=== PATIENT | female | born 1985 ===

== ENCOUNTER 2020-05-25 08:37 | Outpatient (REF) | payer OTHER, SELFPAY | END 2020-05-25 08:38 | disposition home or self-care (01) | LOC: HO.LAB 08:37 | PROVIDERS: Visit Provider Internal Medicine | DX: Z20.828 Contact with and (suspected) exposure to other viral communicable diseases (principal) | CPT/HCPCS: C9803; U0003 ==

== ENCOUNTER 2020-09-05 12:30 | Emergency (ER) | payer OTHER, SELFPAY ==
[2020-09-05 12:48] VITALS: BP 115/67; PULSE 78; RESP 16; TEMP 36.3; O2SAT 98; BMI 17.8
[2020-09-05 16:28] LABS: MANUAL DIFF FLAG NO
[2020-09-05 16:31] LABS: Basophils Percent Auto 0.4 % (0-2); Eosinophils Percent Auto 0.4 % (0-4); Hematocrit 37.3 % (37-47); Hemoglobin 12.3 g/dl (12.0-16.0); Imm Gran Abs Auto 0.02 X10*3/uL (0.00-0.03); Imm Gran Pct Auto 0.2 % (0.0-0.4); Lymphocytes Absolute Auto 2.7 X10*3/uL (1.2-4.9); Lymphocytes Percent Auto 29.1 % (20-40); Mean Corpuscular Hemoglobin 32.1 pg (27.0-33.0); Mean Corpuscular Volume 97.4 fL (80-98); Mean Platelet Volume 9.7 fL (9.4-12.3); Monocytes Absolute Auto 0.5 X10*3/uL (0.1-1.2); Monocytes Percent Auto 5.4 % (2-11); Neutrophils Absolute Auto 5.9 X10*3/uL (2.0-8.3); Neutrophils Percent Auto 64.5 % (45-73); Platelet Count 261 X10*3/uL (160-400); Red Blood Count 3.83 X10*6/uL (4.20-5.50); Red Cell Distribution Width 13.3 % (11.0-16.0); White Blood Count 9.2 X10*3/uL (4.8-10.8)
== END 2020-09-05 18:31 | disposition left against medical advice (07) ==
LOC: HO.ED 18:31
PROVIDERS: Emergency Provider Emergency Medicine; PCP Internal Medicine
DX: R10.9 Unspecified abdominal pain (principal)
CPT/HCPCS: 36415; 85025; 99282

== ENCOUNTER 2022-03-24 09:49 | Outpatient (REF) | payer OTHER, SELFPAY ==
[2022-03-24 10:28] LABS: MANUAL DIFF FLAG NO
[2022-03-24 10:38] LABS: Basophils Percent Auto 0.4 % (0-2); Eosinophils Absolute Auto 0.1 X10*3/uL (0.0-0.4); Eosinophils Percent Auto 1.2 % (0-4); Hematocrit 38.4 % (37.0-47.0); Hemoglobin 12.6 g/dl (12.0-16.0); Imm Gran Abs Auto 0.02 X10*3/uL (0.00-0.03); Imm Gran Pct Auto 0.2 % (0.0-0.4); Lymphocytes Absolute Auto 2.6 X10*3/uL (1.2-4.9); Lymphocytes Percent Auto 28.7 % (20-40); Mean Corpuscular HGB Conc 32.8 g/dl (31.0-35.0); Mean Corpuscular Volume 94.6 fL (80.0-98.0); Mean Platelet Volume 9.7 fL (9.4-12.3); Monocytes Absolute Auto 0.7 X10*3/uL (0.1-1.2); Monocytes Percent Auto 7.3 % (2-11); Neutrophils Absolute Auto 5.7 x10*3/uL (2.0-8.3); Neutrophils Percent Auto 62.2 % (45-73); Platelet Count 303 X10*3/uL (160-400); Red Blood Count 4.06 X10*6/uL (4.20-5.50); Red Cell Distribution Width 13.1 % (11.0-16.0); White Blood Count 9.2 X10*3/uL (4.8-10.8)
[2022-03-24 11:32] LABS: Alanine Aminotransferase 12 U/L (0-31); Albumin Level 4.1 g/dL (3.5-5.0); Alkaline Phosphatase 57 U/L (39-117); Anion Gap 13 (12-20); Aspartate Amino Transferase 15 U/L (5-31); Bilirubin Total 0.4 mg/dL (0.0-1.0); Blood Urea Nitrogen 9 mg/dL (9-16); Calcium 8.7 mg/dL (8.4-10.2); Carbon Dioxide 23 mmol/L (22-29); Chloride 106 mmol/L (96-108); Cholesterol 167 mg/dL; Estimated Glomerular Filt Rate > 60; Glucose Fasting 99 mg/dL (60-99); HDL Cholesterol 48 mg/dL; LDL Cholesterol Calculated 102 mg/dl; Potassium 4.3 mmol/L (3.3-5.1); Sodium 138 mmol/L (135-145); Total Protein 6.5 g/dL (6.5-8.0); Triglycerides 85 mg/dL
[2022-03-24 11:55] LABS: TSH reflex Free T4 0.16 uIU/mL (0.32-4.0)
[2022-03-24 12:36] LABS: Free T4 (Free Thyroxine) 1.01 ng/dL (0.71-1.85)
[2022-03-25 22:07] LABS: Triiodothyronine T3 Free 3.4 pg/mL (2.3-4.2)
[2022-03-27 01:47] LABS: TS Negative Control Passed; TS Panel A 0; TS Panel B 4; TS Positive Control Passed; TSpotTB Negative (Negative)
== END 2022-03-24 09:50 | disposition home or self-care (01) ==
LOC: HO.10HDL 09:49
PROVIDERS: Visit Provider Internal Medicine
DX: Z00.00 Encounter for general adult medical examination without abnormal findings (principal); Z11.1 Encounter for screening for respiratory tuberculosis; E05.80 Other thyrotoxicosis without thyrotoxic crisis or storm
CPT/HCPCS: 36415; 80053; 80061; 84439; 84443; 84481; 85025; 86481

== ENCOUNTER 2022-10-05 15:19 | Emergency (ER) | payer OTHER, SELFPAY ==
[2022-10-05 15:22] VITALS: BP 119/63; PULSE 90; RESP 18; TEMP 37.2; O2SAT 99; BMI 17.1
--- NOTE | 2022-10-05 15:23 | ED.GENADULT ---
HPI - General Adult General Chief complaint: General Medical <JOSE Stein - Last Filed: 10/05/22 15:24> Stated complaint: vomit, feeling weak, abd pain <JOSE Stein Last Filed: 10/05/22 15:24> Time Seen by Provider: 10/05/22 15:33 <JOSE Stein - Last Filed: 10/05/22 15:24> Source: patient <Monse Levine NP - Last Filed: 10/05/22 17:56> Mode of arrival: ambulatory <Monse Levine NP - Last Filed: 10/05/22 17:56> Limitations: no limitations <YOSHI Rodriguez Last Filed: 10/05/22 17:56> History of Present Illness HPI narrative: 36 yo female here with complaints of intermittent upper abdominal pain, vomiting over last month worsened over the last 3 days. No diarrhea, constipation, urinary symptoms, fevers, chills. Patient reports 1 month ago her . She has been suffering with anxiety and depression since he . She reports decreased p.o. intake and has lost 10-15 lb. She denies any suicidal thoughts. Patient is not taking any current medication for anxiety depression. She does not have a therapist or any prescribing psychiatrist <Monse Levine NP - Last Filed: 10/05/22 17:56> Related Data Home medications: Previous Rx's Medication Instructions Recorded omeprazole 40 mg capsule,delayed 40 mg PO DAILY #30 caps 10/05/22 release sucralfate 1 gram tablet (Carafate) 1 g PO TID #90 tabs 10/05/22 <JOSE Stein Last Filed: 10/05/22 15:24> Allergies/adverse reactions: Allergies Allergy/AdvReac Type Severity Reaction Status Date / Time No Known Allergies Allergy Unverified 03/22/20 17:44 [No Known Allergies*] <JOSE Stein Last Filed: 10/05/22 15:24> Review of Systems Review of Systems: Yes all other systems are reviewed and are negative <YOSHI Rodriguez Last Filed: 10/05/22 17:56> Constitutional: Constitutional: Reports no additional constitutional complaints, Denies body ache(s), Denies chills, Denies fever(s), Denies headache(s) and Denies weakness <Monse Levine [employer] - Last Filed: 10/05/22 17:56> Eyes: Eyes: Reports no additional eye complaints and Denies change in vision <Monse Levine [employer] - Last Filed: 10/05/22 17:56> ENT: Reports system reviewed and no additional complaints, except as documented, Denies dizziness, Denies headache(s), Denies nasal congestion, Denies nasal discharge and Denies neck pain <Monse Levine [employer] - Last Filed: 10/05/22 17:56> Cardiovascular: Cardiovascular: Reports no additional cardiovascular complaints, Denies chest pain, Denies leg edema and Denies dyspnea <Monse Levine [employer] - Last Filed: 10/05/22 17:56> Respiratory: Respiratory: Reports no additional respiratory complaints, Denies cough and Denies dyspnea <Monse Levine [employer] - Last Filed: 10/05/22 17:56> Gastrointestinal: Gastrointestinal: Reports no additional gastrointestinal complaints, Reports abdominal pain, Denies diarrhea, Reports nausea and Reports vomiting <Monse Levine [employer] - Last Filed: 10/05/22 17:56> Genitourinary: Genitourinary: Reports no additional female genitourinary complaints and Denies urinary incontinence <Monse Levine [employer] - Last Filed: 10/05/22 17:56> Musculoskeletal: Musculoskeletal: Reports no additional musculoskeletal complaints, Denies back pain, Denies arthralgias, Denies joint swelling, Denies neck pain, Denies numbness and Denies tingling <Monse Levine [employer] - Last Filed: 10/05/22 17:56> Integumentary/Breasts: Skin/Breast: Reports system reviewed and no additional complaints, except as docu and Denies rash <Monse Levine [employer] - Last Filed: 10/05/22 17:56> Neurologic: Reports system reviewed and no additional complaints, except as documented, Denies dizziness, Denies headache(s), Denies numbness, Denies tingling and Denies weakness <Monse Levine NP - Last Filed: 10/05/22 17:56> Psychiatric: Psychiatric: Reports anxiety, Reports depression, Denies homicidal ideation and Denies suicidal ideation <Monse Levine NP - Last Filed: 10/05/22 17:56> [facility] Past Medical History Attestation statement: The following information was validated with the patient. <Monse Levine NP - Last Filed: 10/05/22 17:56> Source: old records reviewed and nursing notes reviewed <Monse Levine NP - Last Filed: 10/05/22 17:56> Social History Social History: Social History Advance Directives: No Advance Directives Information Provided: No <JOSE Stein - Last Filed: 10/05/22 15:24> Physical Exam ED Vital Signs: Vital Signs - 24 hr 10/05/22 15:22 Temperature 99.0 F Pulse Rate 90 Respiratory Rate 18 Blood Pressure 119/63 Pulse Oximetry 99 Oxygen Delivery Method Room Air BMI result Body Mass Index 17.1 <JOSE Stein - Last Filed: 10/05/22 15:24> Vital Signs - 24 hr 10/05/22 15:22 Temperature 99.0 F Pulse Rate 90 Respiratory Rate 18 Blood Pressure 119/63 Pulse Oximetry 99 Oxygen Delivery Method Room Air BMI result Body Mass Index 17.1 <Monse Levine NP - Last Filed: 10/05/22 17:56> Const General: cooperative, healthy appearing, comfortable and no acute distress <Monse Levine NP - Last Filed: 10/05/22 17:56> Orientation/consciousness: patient oriented x3 <Monse Levine NP - Last Filed: 10/05/22 17:56> Limitations: no limitations <Monse Levine NP - Last Filed: 10/05/22 17:56> HENMT Head: Yes normal to inspection <Monse Levine NP - Last Filed: 10/05/22 17:56> Ears: hearing grossly normal bilaterally <Monse Levine [employer] - Last Filed: 10/05/22 17:56> Eyes General: appearance normal, both eyes and all related structures <Monse Levine [employer] - Last Filed: 10/05/22 17:56> Pupils: Equal, round and reactive pupils present <Monse Levine [employer] - Last Filed: 10/05/22 17:56> Neck Neck: Yes normal visual inspection and Yes full ROM <Monse Levine [employer] - Last Filed: 10/05/22 17:56> Chest Chest palpation & inspection: normal inspection of the chest <Monse Levine [employer] - Last Filed: 10/05/22 17:56> Resp Effort & Inspection: normal respiratory effort <Monse Levine [employer] - Last Filed: 10/05/22 17:56> Auscultation: clear to auscultation bilaterally <Monse Levine [employer] - Last Filed: 10/05/22 17:56> Cardio Rate: regular rate <Monse Levine [employer] - Last Filed: 10/05/22 17:56> Rhythm: regular rhythm <Monse Levine [employer] - Last Filed: 10/05/22 17:56> Peripheral pulses: Peripheral pulses 2+ throughout <Monse Levine [employer] - Last Filed: 10/05/22 17:56> GI Inspection: Yes normal to inspection <Monse Levine [employer] - Last Filed: 10/05/22 17:56> Palpation (GI): Soft to palpation, Tenderness to palpation present (GI) in the epigastrum; with no rebound tenderness and no guarding <Monse Levine [employer] - Last Filed: 10/05/22 17:56> Auscultation: normal bowel sounds <Monse Levine [employer] - Last Filed: 10/05/22 17:56> Skin General skin exam: no rashes or lesions noted <Monse Levine [employer] - Last Filed: 10/05/22 17:56> Neuro General: patient oriented x3 and moves all extremities <Monse Levine [employer] - Last Filed: 10/05/22 17:56> Cranial nerves: Yes Equal, round and reactive pupils present <Monse Levine NP - Last Filed: 10/05/22 17:56> Cognition (Neuro): normal cognition <Monse Levine NP - Last Filed: 10/05/22 17:56> Extrem General: Yes normal to inspection <Monse Levine NP - Last Filed: 10/05/22 17:56> Course Course Course Narrative: This is an RME: Additional HPI, ROS, PE not included below will be deferred to primary provider. 36-year-old female history of gastritis presents to the emergency department for evaluation nausea, vomiting, fatigue, malaise, epigastric pain x3 days. According to patient she has not been able to keep anything down, she tells me she feels so nauseous that at time she is to put her finger down her throat to throw up. Also struggling with depression, about a month ago and has been having little to no energy to do things. Denies suicidal and homicidal ideation. Physical exam epigastric discomfort Plan labs, urine. <JOSE Stein - Last Filed: 10/05/22 15:24> Reevaluation(s) Reevaluation #1: Labs and UA are unremarkable. Patient feeling improved. Tolerating p.o. Will consult care team <Monse Levine NP - Last Filed: 10/05/22 17:56> Reevaluation #2: 1740-Patient met with care team. Plan for referral to [facility]. No immediate safety concerns. Patient feels better, tolerating PO. Will discharge home with increase in PPI dose, carafate TID. Reviewed worrisome signs and symptoms of when to return to the emergency room. Comfortable in for discharge home. <Monse Levine NP - Last Filed: 10/05/22 17:56> Medications Administered Discontinued Medications Generic Name Dose Route Start Last Admin Trade Name Freq PRN Reason Stop Dose Admin Al Hydroxide/Mg Hydroxide 30 ml 10/05/22 15:24 10/05/22 16:02 Magnesium Hydrox/Alum Hydrox 30 Ml Oral.Susp PO 10/05/22 15:25 30 ml ONCE ONE Administration Belladonna Alkaloids/Phenobarbital 10 ml 10/05/22 15:24 10/05/22 16:02 Phenobarb/Hyoscy/Atropine/Scop 10 Ml Elixir PO 10/05/22 15:25 10 ml ONCE ONE Administration Sodium Chloride 1,000 mls @ 999 mls/hr 10/05/22 15:30 10/05/22 16:02 Ns IV 10/05/22 16:30 999 mls/hr .Q1H1M GONZALO Administration <JOSE Stein - Last Filed: 10/05/22 15:24> Medications Administered Discontinued Medications Generic Name Dose Route Start Last Admin Trade Name Freq PRN Reason Stop Dose Admin Al Hydroxide/Mg Hydroxide 30 ml 10/05/22 15:24 10/05/22 16:02 Magnesium Hydrox/Alum Hydrox 30 Ml Oral.Susp PO 10/05/22 15:25 30 ml ONCE ONE Administration Belladonna Alkaloids/Phenobarbital 10 ml 10/05/22 15:24 10/05/22 16:02 Phenobarb/Hyoscy/Atropine/Scop 10 Ml Elixir PO 10/05/22 15:25 10 ml ONCE ONE Administration Sodium Chloride 1,000 mls @ 999 mls/hr 10/05/22 15:30 10/05/22 16:02 Ns IV 10/05/22 16:30 999 mls/hr .Q1H1M GONZALO Administration <Monse Levine NP - Last Filed: 10/05/22 17:56> Medical Decision Making Medical Decision Making MDM Narrative: This is a 36-year-old female who presents to the ER with intermittent upper abdominal pain and vomiting for the last month worsened over the last 3 days with decreased oral intake. On exam patient tenderness to the epigastric area with no rebound or guarding. Patient reports history of gastritis currently taking 20 mg omeprazole daily Patient also reports multiple life stressors, recently lost her . Patient reports increasing anxiety and depression with 10-15 lb weight loss. No SI Will obtain labs, UA, COVID screen. Patient will receive IV fluids, GI cocktail Will need crisis consultation for outpatient resources. I do not believe that she poses any harm for herself and if she wants to leave she can. <Monse Levine NP - Last Filed: 10/05/22 17:56> Differential Diagnosis Differential Diagnoses: The differential diagnosis associated with the presentation includes <Monse Levine NP - Last Filed: 10/05/22 17:56> Gastritis, GERD Less likely acute cholecystitis, appendicitis Depression <Monse Levine NP - Last Filed: 10/05/22 17:56> Lab Data MDM Lab Attestation statement: I reviewed the patient's lab results. <Monse Levine NP - Last Filed: 10/05/22 17:56> Result Diagrams: 10/05/22 15:57 10/05/22 15:57 <Arabella Treadwell PA - Last Filed: 10/05/22 15:24> Labs: Lab Results 10/05/22 10/05/22 10/05/22 Range/Units 15:57 15:57 15:57 WBC 9.1 (4.8-10.8) X10*3/uL RBC 4.03 L (4.20-5.50) X10*6/uL Hgb 12.8 (12.0-16.0) g/dl Hct 38.0 (37.0-47.0) % MCV 94.3 (80.0-98.0) fL MCH 31.8 (27.0-33.0) pg MCHC 33.7 (31.0-35.0) g/dl RDW 13.2 (11.0-16.0) % Plt Count 291 (160-400) X10*3/uL MPV 9.5 (9.4-12.3) fL Immature Gran % (Auto) 0.1 (0.0-0.4) % Neut % (Auto) 68.2 (45-73) % Lymph % (Auto) 25.4 (20-40) % [place] % (Auto) 5.6 (2-11) % Eos % (Auto) 0.2 (0-4) % Baso % (Auto) 0.5 (0-2) % Lymph # (Auto) 2.3 (1.2-4.9) X10*3/uL [place] # (Auto) 0.5 (0.1-1.2) X10*3/uL Eos # (Auto) 0.0 (0.0-0.4) X10*3/uL Baso # (Auto) 0.1 (0.0-0.2) X10*3/uL Abs Immat Gran (auto) 0.01 (0.00-0.03) X10*3/uL Absolute Neuts (auto) 6.2 (2.0-8.3) x10*3/uL Absolute Nucleated RBC 0.000 (0.0-0.012) X10*3/uL Nucleated RBC % (auto) 0.0 (0.0-0.2) /100WBC Sodium 139 (135-145) mmol/L Potassium 4.1 (3.3-5.1) mmol/L Chloride 105 (96-108) mmol/L Carbon Dioxide 26 (22-29) mmol/L Anion Gap 12 (12-20) BUN 8 L (9-16) mg/dL Creatinine 0.70 (0.5-1.4) mg/dL Estim Creat Clear Calc 82.7 Estimated GFR > 60 Random Glucose 116 H (60-115) mg/dL Calcium 9.6 D (8.4-10.2) mg/dL Magnesium 2.0 (1.6-2.6) mg/dL Total Bilirubin 0.4 (0.0-1.0) mg/dL AST 16 (5-31) U/L ALT 12 (0-31) U/L Alkaline Phosphatase 62 (39-117) U/L Total Protein 6.9 (6.5-8.0) g/dL Albumin 4.6 (3.5-5.0) g/dL Lipase 11 (8-78) U/L Urine Color Urine Appearance Urine pH (5.0-9.0) Ur Specific [place] (1.005-1.025) Urine Protein (Neg-Trace) mg/dL Urine Glucose (UA) (Negative) mg/dL Urine Ketones (Negative) mg/dL Urine Blood (Negative) Urine Nitrite (Negative) Ur Leukocyte Esterase (Negative) Urine RBC (0-2) /HPF Urine WBC (0-5) /HPF Ur Squamous Epith Cells (0-2) /HPF Urine Bacteria (None Seen) Hyaline Casts (0-2) /LPF Urine Test NEGATIVE (NEGATIVE) COVID-19 (JOCELYN) (Negative) COVID-19 Clin Com 10/05/22 10/05/22 Range/Units 15:57 16:11 WBC (4.8-10.8) X10*3/uL RBC (4.20-5.50) X10*6/uL Hgb (12.0-16.0) g/dl Hct (37.0-47.0) % MCV (80.0-98.0) fL MCH (27.0-33.0) pg MCHC (31.0-35.0) g/dl RDW (11.0-16.0) % Plt Count (160-400) X10*3/uL MPV (9.4-12.3) fL Immature Gran % (Auto) (0.0-0.4) % Neut % (Auto) (45-73) % Lymph % (Auto) (20-40) % [place] % (Auto) (2-11) % Eos % (Auto) (0-4) % Baso % (Auto) (0-2) % Lymph # (Auto) (1.2-4.9) X10*3/uL [place] # (Auto) (0.1-1.2) X10*3/uL Eos # (Auto) (0.0-0.4) X10*3/uL Baso # (Auto) (0.0-0.2) X10*3/uL Abs Immat Gran (auto) (0.00-0.03) X10*3/uL Absolute Neuts (auto) (2.0-8.3) x10*3/uL Absolute Nucleated RBC (0.0-0.012) X10*3/uL Nucleated RBC % (auto) (0.0-0.2) /100WBC Sodium (135-145) mmol/L Potassium (3.3-5.1) mmol/L Chloride (96-108) mmol/L Carbon Dioxide (22-29) mmol/L Anion Gap (12-20) BUN (9-16) mg/dL Creatinine (0.5-1.4) mg/dL Estim Creat Clear Calc Estimated GFR Random Glucose (60-115) mg/dL Calcium (8.4-10.2) mg/dL Magnesium (1.6-2.6) mg/dL Total Bilirubin (0.0-1.0) mg/dL AST (5-31) U/L ALT (0-31) U/L Alkaline Phosphatase (39-117) U/L Total Protein (6.5-8.0) g/dL Albumin (3.5-5.0) g/dL Lipase (8-78) U/L Urine Color Yellow Urine Appearance Cloudy Urine pH 7.0 (5.0-9.0) Ur Specific [place] 1.020 (1.005-1.025) Urine Protein 30 (1+) H (Neg-Trace) mg/dL Urine Glucose (UA) Negative (Negative) mg/dL Urine Ketones Trace (Negative) mg/dL Urine Blood Small (1+) H (Negative) Urine Nitrite Negative (Negative) Ur Leukocyte Esterase Negative (Negative) Urine RBC 11-20 H (0-2) /HPF Urine WBC 0-5 (0-5) /HPF Ur Squamous Epith Cells 11-20 (0-2) /HPF Urine Bacteria Trace (None Seen) Hyaline Casts 0-2 (0-2) /LPF Urine Test (NEGATIVE) COVID-19 (JOCELYN) Negative (Negative) COVID-19 Clin Com See Note <JOSE Stein - Last Filed: 10/05/22 15:24> Lab Results 10/05/22 10/05/22 10/05/22 Range/Units 15:57 15:57 15:57 WBC 9.1 (4.8-10.8) X10*3/uL RBC 4.03 L (4.20-5.50) X10*6/uL Hgb 12.8 (12.0-16.0) g/dl Hct 38.0 (37.0-47.0) % MCV 94.3 (80.0-98.0) fL MCH 31.8 (27.0-33.0) pg MCHC 33.7 (31.0-35.0) g/dl RDW 13.2 (11.0-16.0) % Plt Count 291 (160-400) X10*3/uL MPV 9.5 (9.4-12.3) fL Immature Gran % (Auto) 0.1 (0.0-0.4) % Neut % (Auto) 68.2 (45-73) % Lymph % (Auto) 25.4 (20-40) % [place] % (Auto) 5.6 (2-11) % Eos % (Auto) 0.2 (0-4) % Baso % (Auto) 0.5 (0-2) % Lymph # (Auto) 2.3 (1.2-4.9) X10*3/uL [place] # (Auto) 0.5 (0.1-1.2) X10*3/uL Eos # (Auto) 0.0 (0.0-0.4) X10*3/uL Baso # (Auto) 0.1 (0.0-0.2) X10*3/uL Abs Immat Gran (auto) 0.01 (0.00-0.03) X10*3/uL Absolute Neuts (auto) 6.2 (2.0-8.3) x10*3/uL Absolute Nucleated RBC 0.000 (0.0-0.012) X10*3/uL Nucleated RBC % (auto) 0.0 (0.0-0.2) /100WBC Sodium 139 (135-145) mmol/L Potassium 4.1 (3.3-5.1) mmol/L Chloride 105 (96-108) mmol/L Carbon Dioxide 26 (22-29) mmol/L Anion Gap 12 (12-20) BUN 8 L (9-16) mg/dL Creatinine 0.70 (0.5-1.4) mg/dL Estim Creat Clear Calc 82.7 Estimated GFR > 60 Random Glucose 116 H (60-115) mg/dL Calcium 9.6 D (8.4-10.2) mg/dL Magnesium 2.0 (1.6-2.6) mg/dL Total Bilirubin 0.4 (0.0-1.0) mg/dL AST 16 (5-31) U/L ALT 12 (0-31) U/L Alkaline Phosphatase 62 (39-117) U/L Total Protein 6.9 (6.5-8.0) g/dL Albumin 4.6 (3.5-5.0) g/dL Lipase 11 (8-78) U/L Urine Color Urine Appearance Urine pH (5.0-9.0) Ur Specific [place] (1.005-1.025) Urine Protein (Neg-Trace) mg/dL Urine Glucose (UA) (Negative) mg/dL Urine Ketones (Negative) mg/dL Urine Blood (Negative) Urine Nitrite (Negative) Ur Leukocyte Esterase (Negative) Urine RBC (0-2) /HPF Urine WBC (0-5) /HPF Ur Squamous Epith Cells (0-2) /HPF Urine Bacteria (None Seen) Hyaline Casts (0-2) /LPF Urine Test NEGATIVE (NEGATIVE) COVID-19 (JOCELYN) (Negative) COVID-19 Clin Com 10/05/22 10/05/22 Range/Units 15:57 16:11 WBC (4.8-10.8) X10*3/uL RBC (4.20-5.50) X10*6/uL Hgb (12.0-16.0) g/dl Hct (37.0-47.0) % MCV (80.0-98.0) fL MCH (27.0-33.0) pg MCHC (31.0-35.0) g/dl RDW (11.0-16.0) % Plt Count (160-400) X10*3/uL MPV (9.4-12.3) fL Immature Gran % (Auto) (0.0-0.4) % Neut % (Auto) (45-73) % Lymph % (Auto) (20-40) % [place] % (Auto) (2-11) % Eos % (Auto) (0-4) % Baso % (Auto) (0-2) % Lymph # (Auto) (1.2-4.9) X10*3/uL [place] # (Auto) (0.1-1.2) X10*3/uL Eos # (Auto) (0.0-0.4) X10*3/uL Baso # (Auto) (0.0-0.2) X10*3/uL Abs Immat Gran (auto) (0.00-0.03) X10*3/uL Absolute Neuts (auto) (2.0-8.3) x10*3/uL Absolute Nucleated RBC (0.0-0.012) X10*3/uL Nucleated RBC % (auto) (0.0-0.2) /100WBC Sodium (135-145) mmol/L Potassium (3.3-5.1) mmol/L Chloride (96-108) mmol/L Carbon Dioxide (22-29) mmol/L Anion Gap (12-20) BUN (9-16) mg/dL Creatinine (0.5-1.4) mg/dL Estim Creat Clear Calc Estimated GFR Random Glucose (60-115) mg/dL Calcium (8.4-10.2) mg/dL Magnesium (1.6-2.6) mg/dL Total Bilirubin (0.0-1.0) mg/dL AST (5-31) U/L ALT (0-31) U/L Alkaline Phosphatase (39-117) U/L Total Protein (6.5-8.0) g/dL Albumin (3.5-5.0) g/dL Lipase (8-78) U/L Urine Color Yellow Urine Appearance Cloudy Urine pH 7.0 (5.0-9.0) Ur Specific [place] 1.020 (1.005-1.025) Urine Protein 30 (1+) H (Neg-Trace) mg/dL Urine Glucose (UA) Negative (Negative) mg/dL Urine Ketones Trace (Negative) mg/dL Urine Blood Small (1+) H (Negative) Urine Nitrite Negative (Negative) Ur Leukocyte Esterase Negative (Negative) Urine RBC 11-20 H (0-2) /HPF Urine WBC 0-5 (0-5) /HPF Ur Squamous Epith Cells 11-20 (0-2) /HPF Urine Bacteria Trace (None Seen) Hyaline Casts 0-2 (0-2) /LPF Urine Test (NEGATIVE) COVID-19 (JOCELYN) Negative (Negative) COVID-19 Clin Com See Note <Monse Levine NP - Last Filed: 10/05/22 17:56> Discharge Plan Discharge Clinical Impression: Gastritis, Depression <JOSE Stein - Last Filed: 10/05/22 15:24> Patient Disposition: Home, Self-Care <JOSE Stein - Last Filed: 10/05/22 15:24> Instructions: Gastritis (DC), Depression (DC) <JOSE Stein - Last Filed: 10/05/22 15:24> Additional Instructions: You were given outpatient resources to follow up with [facility] Take the new dose of omeprazole not your all dose Return for worsening pain, intractable vomiting, fever Le dieron recursos para pacientes ambulatorios para hacer un seguimiento con [facility] Travilah la nueva dosis de omeprazol, no toda jacinto dosis. Regrese por empeoramiento del dolor, v?mitos intratables, fiebre <JOSE Stein - Last Filed: 10/05/22 15:24> Prescriptions: New omeprazole 40 mg capsule,delayed release(DR/EC) 40 mg PO DAILY Qty: 30 0RF sucralfate [Carafate] 1 gram tablet 1 g PO TID Qty: 90 0RF <JOSE Stein - Last Filed: 10/05/22 15:24> Referrals: Otilia Herbert MD [Primary Care Provider] - 1 week <JOSE Stein - Last Filed: 10/05/22 15:24> Print Language: French <JOSE Stein - Last Filed: 10/05/22 15:24>
[2022-10-05 16:01] LABS: MANUAL DIFF FLAG NO
[2022-10-05 16:02] LABS: Basophils Absolute Auto 0.1 X10*3/uL (0.0-0.2); Basophils Percent Auto 0.5 % (0-2); Eosinophils Percent Auto 0.2 % (0-4); Hemoglobin 12.8 g/dl (12.0-16.0); Imm Gran Abs Auto 0.01 X10*3/uL (0.00-0.03); Imm Gran Pct Auto 0.1 % (0.0-0.4); Lymphocytes Absolute Auto 2.3 X10*3/uL (1.2-4.9); Lymphocytes Percent Auto 25.4 % (20-40); Mean Corpuscular HGB Conc 33.7 g/dl (31.0-35.0); Mean Corpuscular Hemoglobin 31.8 pg (27.0-33.0); Mean Corpuscular Volume 94.3 fL (80.0-98.0); Mean Platelet Volume 9.5 fL (9.4-12.3); Monocytes Absolute Auto 0.5 X10*3/uL (0.1-1.2); Monocytes Percent Auto 5.6 % (2-11); Neutrophils Absolute Auto 6.2 x10*3/uL (2.0-8.3); Neutrophils Percent Auto 68.2 % (45-73); Platelet Count 291 X10*3/uL (160-400); Red Blood Count 4.03 X10*6/uL (4.20-5.50); Red Cell Distribution Width 13.2 % (11.0-16.0); White Blood Count 9.1 X10*3/uL (4.8-10.8)
[2022-10-05] MEDS: 0.9 % Sodium Chloride 1,000 ML 999 ML IV (16:02)
[2022-10-05] MEDS: PHENobarb/Hyoscy/Atropine/Scop 10 ML ELIXIR PO (16:02)
[2022-10-05] MEDS: Magnesium Hydrox/Alum Hydrox 30 ML ORAL.SUSP PO (16:02)
[2022-10-05 16:07] LABS: Appearance Urine Cloudy; Color Urine Yellow; Glucose Urine UA Negative (Negative); Leukocyte Esterase Urine Negative (Negative); Nitrite Urine Negative (Negative); UMIC TRIGGER UACC YES; Urine Blood Small (1+) (Negative); Urine Ketones Trace mg/dL (Negative); Urine Protein 30 (1+) mg/dL (Neg-Trace)
[2022-10-05 16:09] LABS: Bacteria Urine Trace (None Seen); Hyaline Casts Urine 0-2 /LPF (0-2); UPreg QC Valid YES; Urine Pregnancy NEGATIVE (NEGATIVE); WBC Urine 0-5 /HPF (0-5)
--- NOTE | 2022-10-05 16:10 | PC.NURSE ---
Alert and oriented, resp even and unlabored. IV established, labs drawn and sent. Pt resting quietly in room with call mujica in reach. Care Team consult ordered for depression d/t recent loss of .
[2022-10-05 16:15] LABS: Alanine Aminotransferase 12 U/L (0-31); Albumin Level 4.6 g/dL (3.5-5.0); Alkaline Phosphatase 62 U/L (39-117); Anion Gap 12 (12-20); Aspartate Amino Transferase 16 U/L (5-31); Bilirubin Total 0.4 mg/dL (0.0-1.0); Blood Urea Nitrogen 8 mg/dL (9-16); Calcium 9.6 mg/dL (8.4-10.2); Carbon Dioxide 26 mmol/L (22-29); Chloride 105 mmol/L (96-108); Creatinine Clr Calc Pharmacy 82.7; Estimated Glomerular Filt Rate > 60; Glucose Random 116 mg/dL (60-115); Lipase 11 U/L (8-78); Potassium 4.1 mmol/L (3.3-5.1); Sodium 139 mmol/L (135-145); Total Protein 6.9 g/dL (6.5-8.0)
[2022-10-05 16:35] LABS: COVID-19 Test Negative (Negative); IDNOW Serial# 08D9AD1C
--- NOTE | 2022-10-05 17:18 | MHC.CARE ---
CARE team clinician met with pt secondary to consult for depression. She reports her suddenly a month ago. Since that time she has had to start working and had to move out of her apt with her 2 children, now living with her mother who is not supportive. Pt reports poor sleep and appetite. She denies any SI/HI. Pt agrres she would benefit from individual therapy, she agreed to have referral completed for services through [facility]. CARE team clinician completed referral to [facility]
== END 2022-10-05 18:05 | disposition home or self-care (01) ==
PROVIDERS: Nurse Practitioner Family; Physician Assistant; Emergency Provider Emergency Medicine; PCP Internal Medicine
DX: K29.70 Gastritis, unspecified, without bleeding (principal); F33.1 Major depressive disorder, recurrent, moderate; R11.10 Vomiting, unspecified; R53.1 Weakness; Z20.822 Contact with and (suspected) exposure to COVID-19; Z20.828 Contact with and (suspected) exposure to other viral communicable diseases; Z79.899 Other long term (current) drug therapy
CPT/HCPCS: 36415; 80053; 81001; 81025; 83690; 83735; 85025; 87635; 96360; 99284

== ENCOUNTER 2023-03-16 16:15 | Outpatient (REF) | payer OTHER, SELFPAY ==
[2023-03-16 18:56] LABS: Free T4 (Free Thyroxine) 0.92 ng/dL (0.71-1.85)
[2023-03-18 02:49] LABS: Triiodothyronine T3 Free 3.8 pg/mL (2.3-4.2)
== END 2023-03-16 16:16 | disposition home or self-care (01) ==
LOC: HO.LAB 16:15
PROVIDERS: PCP Internal Medicine; Visit Provider Internal Medicine
DX: Z00.01 Encounter for general adult medical examination with abnormal findings (principal); E05.90 Thyrotoxicosis, unspecified without thyrotoxic crisis or storm; F32.9 Major depressive disorder, single episode, unspecified; R63.4 Abnormal weight loss; Z63.4 Disappearance and death of family member; Z72.0 Tobacco use
CPT/HCPCS: 36415; 84439; 84443; 84481

== ENCOUNTER 2024-03-22 06:52 | Emergency (ER) | payer OTHER, SELFPAY ==
--- NOTE | 2024-03-22 | ECG_ITS ---
Test Reason : cp Blood Pressure : / mmHG Vent. Rate : 084 BPM Atrial Rate : 084 BPM P-R Int : 156 ms QRS Dur : 070 ms QT Int : 348 ms P-R-T Axes : 081 087 076 degrees QTc Int : 411 ms Normal sinus rhythm Normal ECG No previous ECGs available Referred By: Magali Carmichael Electronically Signed By:LUCITA GIBBS
--- NOTE | ~2024-03-22 | US_ITS ---
EXAMINATION: US ABDOMEN LIMITED CLINICAL INFORMATION: Right upper quadrant pain. COMPARISON: 02/07/2009 TECHNIQUE: Real-time imaging of the right upper quadrant abdominal viscera. FINDINGS: PANCREAS: Normal. LIVER: Normal. The liver is normal in size. The liver contour is normal. Parenchymal echogenicity is normal. No focal hepatic lesion. There is no intrahepatic biliary duct dilatation seen. GALLBLADDER: Normal. The gallbladder is physiologically distended without evidence of stones, sludge, polyps, wall thickening or pericholecystic fluid. COMMON BILE DUCT: Normal in caliber measuring 0.2 cm in diameter. RIGHT KIDNEY: Normal. No hydronephrosis. No renal calculi or focal parenchymal lesions. The kidney measures 10.2 cm in maximum dimension. FREE FLUID: None. US/US abdomen limited IMPRESSION: Unremarkable examination. Electronically signed by: Rylie Lambert MD 03/22/2024 08:12 AM EDT
[2024-03-22 07:07] VITALS: BP 112/70; PULSE 93; RESP 18; TEMP 36.9; O2SAT 99; BMI 16.2
--- NOTE | 2024-03-22 07:09 | ED_ITS ---
HPI - Abdominal Pain General Chief Complaint: Abdominal Pain Stated Complaint: Abd pain Time Seen by Provider: 03/22/24 07:09 Source: patient and RN notes reviewed Mode of arrival: ambulatory Limitations: no limitations History of Present Illness ED Provider: Magali Carmichael PA-C HPI narrative: This is a 38-year-old female, with a history GERD on omeprazole, who presents emergency department complaints of epigastric pain, vomiting and diarrhea for the last 2 days. Patient states that she has a history of gastritis and states that her symptoms feel similar. Patient describes the pain as a squeezing sensation that stays in her epigastric region and right upper quadrant. She denies any pain radiation. She denies any fevers, chills, chest pain, shortness of breath, hematemesis, or bloody or black stool. She takes omeprazole daily. She also states that he typically takes ibuprofen regularly. History of section, no other abdominal surgeries. No other complaints or concerns at this time. MD elicited complaint: abdominal pain Pertinent past history: gastritis Onset (ago): day(s) Pain Consistency: constant Location: none Severity: moderate Quality: cramping and aching Radiation: none Migration to: no migration Exacerbating factors: eating and vomiting Relieving factors: nothing Associated symptoms: nausea and vomiting Related Data Previous Rx's ?Medication ?Instructions ?Recorded omeprazole 40 mg capsule,delayed 40 mg PO DAILY #30 caps 10/05/22 release sucralfate 1 gram tablet (Carafate) 1 g PO TID #90 tabs 10/05/22 aluminum-mag hydroxide-simethicone 5 ml PO 5XD PRN dyspepsia #500 mL 03/22/24 200 mg-200 mg-20 mg/5 mL oral susp (Maalox Advanced) Allergies Allergy/AdvReac Type Severity Reaction Status Date / Time No Known Allergies Allergy Verified 03/22/24 07:08 [No Known Allergies*] Review of Systems Review of Systems Yes all other systems are reviewed and are negative Constitutional: Reports as per [facility] Social History Social History Use of substances other than those prescribed or required for medical reasons: No Advance Directives: No Patient : No Physical Exam ED Vital Signs: Vital Signs - 24 hr 03/22/24 07:07 03/22/24 08:12 03/22/24 08:35 Temperature 98.4 F 98.6 F Pulse Rate 93 68 79 Respiratory Rate 18 16 16 Blood Pressure 112/70 105/70 108/60 Pulse Oximetry 99 100 98 Oxygen Delivery Method Room Air Room Air Room Air 03/22/24 10:18 Temperature Pulse Rate 77 Respiratory Rate 12 Blood Pressure 101/64 Pulse Oximetry 99 Oxygen Delivery Method Room Air BMI result Body Mass Index 16.2 Const General: cooperative, comfortable and no acute distress Orientation/consciousness: patient oriented x3 Limitations: no limitations HENMT Head: Yes normal to inspection, Yes normocephalic and Yes atraumatic Ears: hearing grossly normal bilaterally General nose exam: Normal external nose present Face and sinus: Yes normal facial exam Mouth: Normal oral and palatal mucosa present, oropharynx normal and moist mucous membranes Throat: Yes posterior oropharynx normal Eyes General: appearance normal, both eyes and all related structures Eyelids: Yes eyelids normal Conjunctivae: conjunctivae normal Sclerae: sclerae normal Pupils: Equal, round and reactive pupils present EOM: EOMs intact bilaterally Neck Neck: Yes normal visual inspection, Yes full ROM and Yes no lymphadenopathy Lymphatic: no lymphadenopathy noted Chest Chest palpation & inspection: normal inspection of the chest Resp Effort & Inspection: normal respiratory effort and able to speak in complete sentences Auscultation: clear to auscultation bilaterally, no crackles, no rales, no rhonchi and no wheezes Cardio Rate: regular rate Rhythm: regular rhythm Heart sounds: S1 normal heart sound present and S2 normal heart sound present GI Other: Abdomen is soft, with tenderness palpation in the epigastrium and right upper quadrant. No rebound or guarding. Inspection: Yes normal to inspection Skin General skin exam: no rashes or lesions noted Trauma: no lacerations or abrasions Wounds: no wounds Neuro General: patient oriented x3 and moves all extremities Cranial nerves: Yes Equal, round and reactive pupils present Extrem General: Yes normal to inspection Right upper extremity: normal to inspection Left upper extremity: normal to inspection Right lower extremity: normal to inspection Left lower extremity: normal to inspection Course Reevaluation(s) Reevaluation #1: Patient re-evaluated, feeling much better after receiving GI cocktail, viral swabs still pending. Ultrasound reviewed, unremarkable. Will continue to closely monitor. Time: 08:16 Reevaluation #2: Ultrasound returns, unremarkable. Patient's symptoms consistent with gastritis. She is feeling much better after receiving GI cocktail. Will discharged with Maalox, and advised to continue taking omeprazole. Also given referral to GI. Patient also with slight hypokalemia will replenish with 1 time dose of potassium. Discussed patient, would benefit from repeat aches. She understands and agrees with plan. Patient stable for discharge Time: 10:39 Medical Decision Making Medical Decision Making MDM Narrative: This is a 38-year-old female, with a history of gastritis, who presents emergency department with complaints of right upper quadrant pain and epigastric pain for the last 2 days. On arrival, vital signs within normal limits. Abdomen is soft with tenderness palpation in the right upper quadrant and epigastrium. Differential diagnoses include acute gastritis, cholecystitis, cholangitis, ACS. Plan: Labs, UA, ultrasound, further ER evaluation needed Differential Diagnosis Differential Diagnoses: The differential diagnosis associated with the presentation includes See above Admission/Observation Consideration of admission/observation: Escalation of care including admission/observation considered Lab Data 03/22/24 07:30 03/22/24 07:30 Labs: Lab Results 03/22/24 Range/Units 07:30 WBC 10.0 (4.8-10.8) X10*3/uL RBC 4.00 L (4.20-5.50) X10*6/uL Hgb 12.9 (12.0-16.0) g/dl Hct 37.5 (37.0-47.0) % MCV 93.8 (80.0-98.0) fL MCH 32.3 (27.0-33.0) pg MCHC 34.4 (31.0-35.0) g/dl RDW 13.3 (11.0-16.0) % Plt Count 265 (160-400) X10*3/uL MPV 9.2 L (9.4-12.3) fL Immature Gran % (Auto) 0.2 (0.0-0.4) % Neut % (Auto) 60.4 (45-73) % Lymph % (Auto) 28.6 (20-40) % [place] % (Auto) 9.7 (2-11) % Eos % (Auto) 0.5 (0-4) % Baso % (Auto) 0.6 (0-2) % Lymph # (Auto) 2.9 (1.2-4.9) X10*3/uL [place] # (Auto) 1.0 (0.1-1.2) X10*3/uL Eos # (Auto) 0.1 (0.0-0.4) X10*3/uL Baso # (Auto) 0.1 (0.0-0.2) X10*3/uL Abs Immat Gran (auto) 0.02 (0.00-0.03) X10*3/uL Absolute Neuts (auto) 6.0 (2.0-8.3) x10*3/uL Absolute Nucleated RBC 0.000 (0.0-0.012) X10*3/uL Nucleated RBC % (auto) 0.0 (0.0-0.2) /100WBC Sodium 140 (135-145) mmol/L Potassium 3.1 L (3.3-5.1) mmol/L Chloride 108 (96-108) mmol/L Carbon Dioxide 25 (22-29) mmol/L Anion Gap 10 L (12-20) BUN 8 L (9-16) mg/dL Creatinine 0.71 (0.5-1.4) mg/dL Estim Creat Clear Calc 75.8 Estimated GFR > 60 Random Glucose 95 (60-115) mg/dL Calcium 9.4 (8.4-10.2) mg/dL Magnesium 1.9 (1.6-2.6) mg/dL Total Bilirubin 0.6 (0.0-1.0) mg/dL Direct Bilirubin 0.2 (0.0-0.5) mg/dL AST 16 (5-31) U/L ALT 12 (0-31) U/L Alkaline Phosphatase 62 (39-117) U/L Troponin I High Sens < 2.7 (<3.5-17.0) ng/L Total Protein 7.1 (6.5-8.0) g/dL Albumin 4.4 (3.5-5.0) g/dL Lipase 15 (8-78) U/L Influenza Type A (PCR) NEGATIVE (Negative) Influenza Type B (PCR) NEGATIVE (Negative) RSV RNA Qual (PCR) NEGATIVE (Negative) SARS-CoV-2 RNA (RT-PCR) NEGATIVE (Negative) Medications Administered Discontinued Medications Generic Name Dose Route Start Last Admin Trade Name Freq PRN Reason Stop Dose Admin Al Hydroxide/Mg Hydroxide 30 ml 03/22/24 07:19 03/22/24 07:32 Magnesium Hydrox/Alum Hydrox 30 Ml Oral.Susp PO 03/22/24 07:20 30 ml ONCE ONE Administration Belladonna Alkaloids/Phenobarbital 10 ml 03/22/24 07:21 03/22/24 07:32 Phenobarb/Hyoscy/Atropine/Scop 10 Ml Elixir PO 03/22/24 07:22 10 ml ONCE ONE Administration Lidocaine HCl 15 ml 03/22/24 07:19 03/22/24 07:32 Lidocaine Hcl Viscous 2 % 15 Ml Solution MUCOUS MEM 03/22/24 07:20 15 ml ONCE ONE Administration Discharge Plan Discharge Clinical Impression: Gastritis Patient Disposition: Home, Self-Care Instructions: Gastritis (ED), Diet for Stomach Ulcers and Gastritis (ED) Additional Instructions: Your symptoms are likely due to gastritis. Your blood work was normal. You do have slight the low potassium, we gave you 1 time dose of potassium. Your EKG was normal. Your ultrasound was normal. Please follow-up with your primary care physician regarding this as you may need repeat labs. Please continue taking your omeprazole as prescribed. You may take maalox as needed. Drink plenty of fluids get plenty of rest. Avoid spicy or fried foods as this can make your symptoms worse. Taking ibuprofen daily can also contribute to your pain. Please follow-up with your primary care physician. I am also giving you a referral to a travel information center supervisor for further management. If any new or worsening symptoms occur including but not limited to worsening pain, chest pain, shortness breath, please return for re-evaluation. Prescriptions: New alum-mag hydroxide-simeth [Maalox Advanced] 200-200-20 mg/5 mL suspension 5 ml PO 5XD PRN (Reason: dyspepsia) Qty: 500 0RF Rx Instructions: administer between meals and at bedtime No Action omeprazole 40 mg capsule,delayed release(DR/EC) 40 mg PO DAILY Qty: 30 0RF sucralfate [Carafate] 1 gram tablet 1 g PO TID Qty: 90 0RF Referrals: [facility] [place] [facility] [Provider Group] Stand Alone Forms: Work/School Release Print Language: [place]
[2024-03-22] MEDS: PHENobarb/Hyoscy/Atropine/Scop 10 ML ELIXIR PO (07:32)
[2024-03-22] MEDS: Lidocaine HCl Viscous 2 % 15 ML SOLUTION MUCOUS MEM (07:32)
[2024-03-22] MEDS: Magnesium Hydrox/Alum Hydrox 30 ML ORAL.SUSP PO (07:32)
[2024-03-22 07:33] LABS: MANUAL DIFF FLAG NO
[2024-03-22 07:34] LABS: Basophils Absolute Auto 0.1 X10*3/uL (0.0-0.2); Basophils Percent Auto 0.6 % (0-2); Eosinophils Absolute Auto 0.1 X10*3/uL (0.0-0.4); Eosinophils Percent Auto 0.5 % (0-4); Hematocrit 37.5 % (37.0-47.0); Hemoglobin 12.9 g/dl (12.0-16.0); Imm Gran Abs Auto 0.02 X10*3/uL (0.00-0.03); Imm Gran Pct Auto 0.2 % (0.0-0.4); Lymphocytes Absolute Auto 2.9 X10*3/uL (1.2-4.9); Lymphocytes Percent Auto 28.6 % (20-40); Mean Corpuscular HGB Conc 34.4 g/dl (31.0-35.0); Mean Corpuscular Hemoglobin 32.3 pg (27.0-33.0); Mean Corpuscular Volume 93.8 fL (80.0-98.0); Mean Platelet Volume 9.2 fL (9.4-12.3); Monocytes Percent Auto 9.7 % (2-11); Neutrophils Percent Auto 60.4 % (45-73); Platelet Count 265 X10*3/uL (160-400); Red Cell Distribution Width 13.3 % (11.0-16.0)
--- NOTE | 2024-03-22 07:40 | PC.NURSE ---
a&ox4. vss and up to date. nsr on the hall monitor. pt presents to the ED w/ generalized abd pain radiating to epigastric region w/ associated n/v/d/sob x 2 days. pt reports self medicating at home w/ ibuprofen w/ no relief. pt denies any bloody vomit/diarrhea. abd tender w/ palpation. 20gIV placed in the left AC - labs obtained/sent. ekg performed by tech. medication administered per provider order. effectiveness pending. no sob/wob noted. respirations even/unlabored. lung sounds CTA. pt waiting for ultrasound to be completed. plan of care ongoing. call mujica placed within reach.
--- NOTE | 2024-03-22 07:50 | PC.NURSE ---
pt having ultrasound be completed at this time.
[2024-03-22 07:54] LABS: Alanine Aminotransferase 12 U/L (0-31); Albumin Level 4.4 g/dL (3.5-5.0); Alkaline Phosphatase 62 U/L (39-117); Anion Gap 10 (12-20); Aspartate Amino Transferase 16 U/L (5-31); Bilirubin Direct 0.2 mg/dL (0.0-0.5); Bilirubin Total 0.6 mg/dL (0.0-1.0); Blood Urea Nitrogen 8 mg/dL (9-16); Calcium 9.4 mg/dL (8.4-10.2); Carbon Dioxide 25 mmol/L (22-29); Chloride 108 mmol/L (96-108); Creatinine Clr Calc Pharmacy 75.8; Estimated Glomerular Filt Rate > 60; Glucose Random 95 mg/dL (60-115); Lipase 15 U/L (8-78); Magnesium 1.9 mg/dL (1.6-2.6); Potassium 3.1 mmol/L (3.3-5.1); Sodium 140 mmol/L (135-145); Total Protein 7.1 g/dL (6.5-8.0)
[2024-03-22 08:02] LABS: Troponin-I High Sensitivity < 2.7 ng/L (<3.5-17.0)
[2024-03-22 08:12] VITALS: BP 105/70; PULSE 68; RESP 16; O2SAT 100
[2024-03-22 08:16] LABS: Influenza A PCR NEGATIVE (Negative); Influenza B PCR NEGATIVE (Negative); Resp Syncy Virus RNA Qual PCR NEGATIVE (Negative); SARS COV2 PCR INHOUSE NEGATIVE (Negative)
[2024-03-22 08:35] VITALS: BP 108/60; PULSE 79; RESP 16; TEMP 37; O2SAT 98
[2024-03-22 10:18] VITALS: BP 101/64; PULSE 77; RESP 12; O2SAT 99
[2024-03-22] MEDS: Potassium Chloride Packet 20 MEQ PACKET 40 MEQ PO (10:58)
[2024-03-22 11:04] VITALS: BP 101/64; PULSE 77; RESP 12; TEMP 37; O2SAT 99
== END 2024-03-22 11:04 | disposition home or self-care (01) ==
PROVIDERS: Physician Assistant Medical; Emergency Provider Emergency Medicine; PCP Internal Medicine
DX: K29.70 Gastritis, unspecified, without bleeding (principal); R10.13 Epigastric pain; R11.2 Nausea with vomiting, unspecified; R10.11 Right upper quadrant pain; R07.89 Other chest pain; Z03.818 Encounter for observation for suspected exposure to other biological agents ruled out; Z79.899 Other long term (current) drug therapy
CPT/HCPCS: 0241U; 76705; 80048; 80076; 83690; 83735; 84484; 85025; 93005; 99283; 99284; 99285